=== PATIENT | female | born 1955 | race Caucasian/White ===

== ENCOUNTER 2016-09-29 04:58 | Emergency (ER) | payer BC ==
[~2016-09-29] VITALS: Ht 157.5 cm; Wt 52.2 kg
[2016-09-29] VITALS (7 sets, daily range): BP systolic 92–109; BP diastolic 50–67
[2016-09-29] MEDS ORDERED: ATIVAN0.5 MG ORAL (05:06)
[2016-09-29] MEDS ORDERED: PRISTIQ ER25 MG PO (05:06)
[2016-09-29] MEDS ORDERED: SYNTHROID88 MCG ORAL (05:06)
[2016-09-29] MEDS ORDERED: NUVIGIL250 MG PO (05:06)
[2016-09-29 06:34] LABS: MEAN CORPUSCULAR HEMOGLOBIN 30.3 PG (27.0-31.0); MEAN CORPUSCULAR HGB CONC 32.6 G/DL (32.0-36.0); MEAN CORPUSCULAR VOLUME 93 FL (80-99); MEAN PLATELET VOLUME 5.9 FL (6.5-10.1); PLATELET COUNT 339 K/UL (150-450); RED BLOOD COUNT 4.58 M/UL (4.20-5.40); RED CELL DISTRIBUTION WIDTH 12.9 % (11.6-14.8); WHITE BLOOD COUNT 19.7 K/UL (4.8-10.8)
--- NOTE | 2016-09-29 06:39 | Emergency Room Report ---
History of Present Illness General Chief Complaint: Syncope Source: Patient (JULIAN TERAN M.D.) Present Illness HPI 61-year-old female presents to ED status post syncopal episode. Per EMS patient was sitting on the toilet when she started to feel dizzy and passed out. She states she's had multiple episodes of diarrhea starting last night. Patient sustained a laceration to her chin. Upon arrival patient states she is feeling better. Patient states she has history of vasovagal syncope. Patient BP low in the field. Given IV fluids. Tetanus is up-to-date. Denies the pain. Denies any headache, blurry vision. Denies chest pain shortness of breath. No other aggravating relieving factors. (JULIAN TERAN M.D.) Allergies: Coded Allergies: No Known Allergies (Unverified , 09/29/16) Patient History Past Medical History: none Past Surgical History: none Pertinent Family History: none Social History: Denies: alcohol use, drug use, smoking Last Menstrual Period: none Now: No Immunizations: UTD Reviewed Nursing Documentation: PMH: Agreed, PSxH: Agreed (JULIAN TERAN M.D.) Review of Systems All Other Systems: negative except mentioned in HPI (JULIAN TERAN M.D.) Physical Exam Vital Signs Date Time Temp Pulse Resp B/P Pulse Ox O2 Delivery O2 Flow Rate FiO2 09/29/16 04:57 98.1 94 18 90/43 96 Room Air Sp02 EP Interpretation: reviewed, normal General Appearance: no apparent distress, alert, GCS 15, non-toxic Head: normocephalic, other - 2cm laceration to chin Eyes: bilateral eye PERRL, bilateral eye normal inspection ENT: hearing grossly normal, normal pharynx, no angioedema, normal voice Neck: full range of motion, supple/symm/no masses Respiratory: chest non-tender, lungs clear, normal breath sounds, speaking full sentences Cardiovascular #1: regular rate, rhythm, no edema Cardiovascular #2: 2+ carotid (R), 2+ carotid (L), 2+ radial (R), 2+ radial (L) , 2+ dorsalis pedis (R), 2+ dorsalis pedis (L) Gastrointestinal: normal bowel sounds, non tender, soft, non-distended, no guarding, no rebound Rectal: deferred Genitourinary: normal inspection, no CVA tenderness Musculoskeletal: back normal, gait/station normal, normal range of motion, non- tender Neurologic: alert, oriented x3, responsive, motor strength/tone normal, sensory intact, speech normal Psychiatric: judgement/insight normal, memory normal, mood/affect normal, no suicidal/homicidal ideation Reflexes: 3+ bicep (R), 3+ bicep (L), 3+ tricep (R), 3+ tricep (L), 3+ knee (R) , 3+ knee (L) Skin: normal color, no rash, warm/dry, well hydrated Lymphatic: no adenopathy (JULIAN TERAN M.D.) Medical Decision Making Diagnostic Impression: Primary Impression: Syncope Labs Test 09/29/16 06:25 White Blood Count 19.7 K/UL (4.8-10.8) Red Blood Count 4.58 M/UL (4.20-5.40) Hemoglobin 13.9 G/DL (12.0-16.0) Hematocrit 42.5 % (37.0-47.0) Mean Corpuscular Volume 93 FL (80-99) Mean Corpuscular Hemoglobin 30.3 PG (27.0-31.0) Mean Corpuscular Hemoglobin Concent 32.6 G/DL (32.0-36.0) Red Cell Distribution Width 12.9 % (11.6-14.8) Platelet Count 339 K/UL (150-450) Mean Platelet Volume 5.9 FL (6.5-10.1) Neutrophils (%) (Auto) % (45.0-75.0) Lymphocytes (%) (Auto) % (20.0-45.0) Monocytes (%) (Auto) % (1.0-10.0) Eosinophils (%) (Auto) % (0.0-3.0) Basophils (%) (Auto) % (0.0-2.0) Sodium Level 129 mEQ/L (135-145) Potassium Level 4.3 mEQ/L (3.4-4.9) Chloride Level 95 mEQ/L (98-107) Carbon Dioxide Level 24 mEQ/L (20-30) Anion Gap 10 (5-15) Blood Urea Nitrogen 23 mg/dL (7-23) Creatinine 1.0 mg/dL (0.5-0.9) Estimat Glomerular Filtration Rate 56.4 mL/min (>60) Glucose Level 112 mg/dL (74-106) Calcium Level 8.8 mg/dL (8.6-10.2) Total Bilirubin 0.3 mg/dL (0.0-1.2) Aspartate Amino Transf (AST/SGOT) 19 U/L (5-40) Alanine Aminotransferase (ALT/SGPT) 14 U/L (3-33) Alkaline Phosphatase 87 U/L (35-104) Total Creatine Kinase 50 U/L (26-140) Creatine Kinase MB 2.0 ng/mL (< 3.8) Creatine Kinase MB Relative Index 4.0 Troponin I < 0.30 ng/mL (<=0.30) Total Protein 6.4 g/dL (6.6-8.7) Albumin 3.8 g/dL (3.5-5.2) Globulin 2.6 g/dL Albumin/Globulin Ratio 1.4 (1.0-2.7) (JULIAN TERAN M.D.) ER Course Patient was endorsed to me by Dr. Teran. The patient was noted to have a syncopal episode after having watery diarrhea. The patient was given IV fluid she was given IV antibiotics. Patient was noted to have improvement in her symptoms. Patient was offered admission but declined. Orthostatic vital signs were unremarkable after IV hydration. 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 Patient is much return if she began feeling dizzy lightheaded or any other concerns. (Kam Acosta) EKG Diagnostic Results Rate: normal Rhythm: NSR ST Segments: no acute changes ASA given to the pt in ED: No (JULIAN TERAN M.D.) Rhythm Strip Diag. Results EP Interpretation: yes Rhythm: NSR, no PVC's, no ectopy (JULIAN TERAN M.D.) Chest X-Ray Diagnostic Results Chest X-Ray Diagnostic Results : Chest X-Ray Ordered: Yes # of Views/Limited/Complete: 1 View Indication: Other - syncope EP Interpretation: Yes Interpretation: no consolidation, no effusion, no pneumothorax, no acute cardiopulmonary disease Impression: No acute disease Interpreting ER Provider: electronically signed by Julian Teran MD (JULIAN TERAN M.D.) CT/MRI/US Diagnostic Results CT/MRI/US Diagnostic Results #1: Imaging Test Ordered: CT Head Impression no acute process CT/MRI/US Diagnostic Results #2: Imaging Test Ordered: CT Facial Bone Impression no acute process (JULIAN TERAN M.D.) Last Vital Signs Date Time Temp Pulse Resp B/P Pulse Ox O2 Delivery O2 Flow Rate FiO2 09/29/16 04:57 98.1 94 18 90/43 96 Room Air (JULIAN TERAN M.D.) Status: improved (Kam Acosta) Disposition: HOME, SELF-CARE Condition: Stable Scripts Cephalexin* (KEFLEX*) 500 Mg Capsule 500 MG ORAL Q6H, #28 CAP 0 Refills Prov: Kam Acosta 09/29/16 Referrals: NOT CHOSEN IPA/,REFERRING (PCP) JULIAN TERAN M.D. Sep 29, 2016 06:39 Kam Acosta Sep 29, 2016 09:46
[2016-09-29] MEDS ORDERED: Bacitracin Oint UD TOPIC ONE (06:45)
[2016-09-29 06:49] LABS: ALBUMIN/GLOBULIN RATIO 1.4 (1.0-2.7); CALCIUM 8.8 mg/dL (8.6-10.2); GLOMERULAR FILTRATION RATE 56.4 mL/min (>60); POTASSIUM 4.3 mEQ/L (3.4-4.9); TOTAL PROTEIN 6.4 g/dL (6.6-8.7)
[2016-09-29 06:50] LABS: TROPONIN I < 0.30 ng/mL (<=0.30)
[2016-09-29 08:06] LABS: BAND NEUTROPHILS % (MANUAL) 0 % (0-8); BASOPHILS % (MANUAL) 0 % (0-2); EOSINOPHILS % (MANUAL) 0 % (0-3); LYMPHOCYTES % (MANUAL) 6 % (20-45); NEUTROPHILS % (MANUAL) 83 % (45-75); PLATELET ESTIMATE ADEQUATE; PLATELET MORPHOLOGY NORMAL; TOTAL CELLS COUNTED 100
[2016-09-29 08:53] LABS: APPEARANCE,URINE SLIGHTLY CLOUDY; KETONES,URINE 2+ (NEGATIVE); LEUKOCYTE ESTERASE ,URINE 2+ (NEGATIVE); NITRITE,URINE POSITIVE (NEGATIVE); PH,URINE 6.5 (4.5-8.0); PROTEIN,URINE 3+ (NEGATIVE); UROBILINOGEN,URINE 8 MG/DL (0.0-1.0)
[2016-09-29 08:56] LABS: AMORPHOUS SEDIMENT,UR FEW /LPF; BACTERIA,URINE FEW /HPF; CALCIUM OXALATE CRYSTALS,UR FEW /LPF; ICTOTEST NEGATIVE; SQUAMOUS EPITHELIAL CELL,UR FEW /LPF (NONE/OCC)
[2016-09-29] MEDS ORDERED: KEFLEX500 MG ORAL (09:03)
[2016-09-29] MEDS ORDERED: cefTRIAXone 1 GM in NS 55 ML IVPB ONE (09:15)
--- NOTE | 2016-09-29 09:37 | Diagnostic Imaging Report ---
Indications: SYNCOPE Technique: Spiral images obtained through the facial bones. No IV contrast utilized. Multiplanar reconstructions were generated.Total dose length product body 5 mGycm. CTDIvol(s) 28mGy. Dose reduction achieved using automated exposure control Comparison: None Findings: No evidence of acute fracture. The sinuses are clear. The dentition is intact. Impression: Negative This agrees with the preliminary interpretation provided overnight by Dr. Murphy The CT scanner at [facility] is accredited by the [employer] and the scans are performed using protocols designed to limit radiation exposure to as low as reasonably achievable to attain images of sufficient resolution adequate for diagnostic evaluation.
--- NOTE | 2016-09-29 13:30 | Diagnostic Imaging Report ---
Indication: Chest pain Technique: One view of the chest Comparison: none Findings: Lungs and pleural spaces are clear. Heart size is normal. Impression: No acute process
== END 2016-09-29 09:59 | disposition home or self-care (01) ==
LOC: EDBD 04:58 → EMR 05:15
DX: R55 Syncope and collapse (principal); R19.7 Diarrhea, unspecified; S01.81XA Laceration without foreign body of other part of head, initial encounter; W19.XXXA Unspecified fall, initial encounter; Y93.9 Activity, unspecified; Y92.9 Unspecified place or not applicable
CPT/HCPCS: 36415; 70450; 70486; 71010; 80053; 81003; 82550; 82553; 84484; 85007; 85025; 93005; 96361; 96374; 96375; 99284; J0696

== ENCOUNTER 2016-10-04 05:53 | Emergency (ER) | payer BC ==
[~2016-10-04] VITALS: Ht 157.5 cm; Wt 52.2 kg
[~2016-10-04 05:53] MED LIST: ATIVAN0.5 MG ORAL; KEFLEX500 MG ORAL; NUVIGIL250 MG PO; PRISTIQ ER25 MG PO; SYNTHROID88 MCG ORAL
[2016-10-04 06:01] VITALS: BP 129/87
[2016-10-04 06:29] VITALS: BP 129/87
--- NOTE | 2016-10-05 14:58 | Emergency Room Report ---
History of Present Illness General Chief Complaint: Wound Recheck/Suture Removal Source: Patient Present Illness HPI 61-year-old female presents ED for suture removal. Patient is here last week for syncopal episode and sustained a chin laceration. Laceration was repaired and patient was treated and discharged. Patient is here to have the sutures removed. Denies any pain. States the wound is well-healed. Denies any discharge. No other aggravating relieving factors. Denies any other associated symptoms Allergies: Coded Allergies: No Known Allergies (Unverified , 09/29/16) Patient History Past Medical History: none Past Surgical History: none Pertinent Family History: none Social History: Denies: alcohol use, drug use, smoking Now: No Immunizations: UTD Reviewed Nursing Documentation: PMH: Agreed, PSxH: Agreed Nursing Documentation-PMH Past Medical History: No Stated History Review of Systems All Other Systems: negative except mentioned in HPI Physical Exam Vital Signs Date Time Temp Pulse Resp B/P Pulse Ox O2 Delivery O2 Flow Rate FiO2 10/04/16 05:57 98.1 80 18 129/87 100 Room Air Sp02 EP Interpretation: reviewed, normal General Appearance: no apparent distress, alert, GCS 15, non-toxic Head: normocephalic Eyes: bilateral eye PERRL, bilateral eye normal inspection ENT: normal ENT inspection Neck: normal inspection Respiratory: normal inspection Cardiovascular #1: normal inspection Gastrointestinal: normal inspection Rectal: deferred Genitourinary: no CVA tenderness Musculoskeletal: normal inspection Neurologic: alert, oriented x3, responsive, motor strength/tone normal, sensory intact, speech normal Psychiatric: judgement/insight normal, memory normal, mood/affect normal, no suicidal/homicidal ideation Skin: other - laceration well approximated with sutures. no induration/erythema Lymphatic: normal inspection Medical Decision Making Diagnostic Impression: Primary Impression: Encounter for removal of sutures ER Course Patient presents to the emergency department today for suture removal. patient' s wound appears well-healed, and sutures are ready to be removed today. Using sterile technique the sutures were removed patient tolerated procedure well without any difficulty. Patient was given device in how to care for the wound patient is advised followup with his private care doctor in 2-3 days and return to emergency room for any worsening conditions as needed Last Vital Signs Date Time Temp Pulse Resp B/P Pulse Ox O2 Delivery O2 Flow Rate FiO2 10/04/16 06:29 98.0 82 18 129/87 100 Room Air Status: improved Disposition: HOME, SELF-CARE Condition: Stable Referrals: NON PHYSICIAN (PCP) Patient Instructions: Suture Removal, Care After WILLEM CLANCY M.D. Oct 05, 2016 14:58
== END 2016-10-04 06:30 | disposition home or self-care (01) ==
LOC: EMR 06:12
DX: S01.81XD Laceration without foreign body of other part of head, subsequent encounter (principal); Z48.02 Encounter for removal of sutures
CPT/HCPCS: 99282

== ENCOUNTER 2017-10-15 20:49 | Emergency (ER) | payer BC ==
[~2017-10-15] VITALS: Ht 162.6 cm; Wt 65.8 kg
--- NOTE | 2017-10-15 20:59 | Emergency Room Report ---
History of Present Illness General Chief Complaint: Overdose Source: Medical Record, EMS Present Illness HPI Is a 62-year-old female with a psychiatric history. She was brought in by EMS with chief complaint of overdose. Her called 911 because she overdose on Klonopin and Ambien. Unknown amount. She said she is went to sleep. Per her she threatened suicide before doing it. Unable to get any other history from patient because of her sedated state. I spoke with her who showed up later. He said that they're living apartment because of some marital issue. Patient has been depressed. A friend called him to check up on her because there were unable to contact the patient. He found her after she admit to taking some pills. She had written a note that said that she is DO NOT RESUSCITATE and does not want any he woke effort. She doesn't want an autopsy and where to be buried. Police placed her on a 5150. Allergies: Coded Allergies: No Known Allergies (Unverified , 09/29/16) Patient History Past Medical History: see triage record, old chart reviewed, psych hx Past Surgical History: other Family History: none Social History: other Now: No Immunizations: other Reviewed Nursing Documentation: PMH: Agreed; PSxH: Agreed Nursing Documentation-PMH History Of Psychiatric Problem: Yes - anxiety, depression Review of Systems ENT: Denies: sore throat Cardiovascular: Denies: chest pain, palpitations Gastrointestinal/Abdominal: Denies: nausea, vomiting, diarrhea Musculoskeletal: Denies: back problems Skin: Denies: rash Neurological: Denies: KURTZ, seizures All Other Systems: negative except mentioned in HPI Physical Exam Vital Signs Date Time Temp Pulse Resp B/P (MAP) Pulse Ox O2 Delivery O2 Flow Rate FiO2 10/15/17 20:47 97.4 80 18 112/68 98 Room Air 97.3 vitals stable Sp02 EP Interpretation: reviewed, normal General Appearance: no apparent distress, non-toxic, other - Sleepy Head: normocephalic, atraumatic Eyes: PERRL, EOMI ENT: oropharynx normal Neck: supple/symm/no masses Respiratory: effort normal, no rhonchi, no wheezing Cardiovascular: no murmur, gallop, rub Gastrointestinal: non-tender, no mass, non-distended, no rebound/guarding, normal bowel sounds Musculoskeletal: normal ROM Neurologic: sensory intact, motor strength/tone normal, other - No focal deficit Skin: no rash, normal palpation Medical Decision Making Diagnostic Impression: Primary Impression: Benzodiazepine (tranquilizer) overdose Qualified Codes: T42.4X2A - Poisoning by benzodiazepines, intentional self- harm, initial encounter Additional Impressions: Suicidal overdose Qualified Codes: T50.902A - Poisoning by unspecified drugs, medicaments and biological substances, intentional self-harm, initial encounter Major depression Qualified Codes: F32.2 - Major depressive disorder, single episode, severe without psychotic features ER Course Patient with major depression and suicidal overdose. She is getting more more awake. Vital signs have been stable. She is medically cleared for psychiatric evaluation. Laboratory Tests Test 10/15/17 21:09 White Blood Count 12.2 K/UL (4.8-10.8) H Red Blood Count 4.40 M/UL (4.20-5.40) Hemoglobin 13.2 G/DL (12.0-16.0) Hematocrit 40.2 % (37.0-47.0) Mean Corpuscular Volume 91 FL (80-99) Mean Corpuscular Hemoglobin 30.0 PG (27.0-31.0) Mean Corpuscular Hemoglobin Concent 32.8 G/DL (32.0-36.0) Red Cell Distribution Width 11.5 % (11.6-14.8) L Platelet Count 291 K/UL (150-450) Mean Platelet Volume 5.9 FL (6.5-10.1) L Neutrophils (%) (Auto) 66.1 % (45.0-75.0) Lymphocytes (%) (Auto) 22.1 % (20.0-45.0) Monocytes (%) (Auto) 8.9 % (1.0-10.0) Eosinophils (%) (Auto) 2.1 % (0.0-3.0) Basophils (%) (Auto) 0.8 % (0.0-2.0) Urine Color Yellow Urine Appearance Clear Urine pH 6 (4.5-8.0) Urine Specific [place] 1.015 (1.005-1.035) Urine Protein 1+ (NEGATIVE) H Urine Glucose (UA) Negative (NEGATIVE) Urine Ketones Negative (NEGATIVE) Urine Occult Blood Negative (NEGATIVE) Urine Nitrite Negative (NEGATIVE) Urine Bilirubin Negative (NEGATIVE) Urine Urobilinogen Normal MG/DL (0.0-1.0) Urine Leukocyte Esterase 1+ (NEGATIVE) H Urine RBC 0-2 /HPF (0 - 2) Urine WBC 2-4 /HPF (0 - 2) Urine Squamous Epithelial Cells Few /LPF (NONE/OCC) Urine Bacteria Few /HPF (NONE) Sodium Level 141 MMOL/L (136-145) Potassium Level 3.6 MMOL/L (3.5-5.1) Chloride Level 104 MMOL/L (98-107) Carbon Dioxide Level 28 MMOL/L (21-32) Anion Gap 10 mmol/L (5-15) Blood Urea Nitrogen 16 mg/dL (7-18) Creatinine 1.4 MG/DL (0.55-1.30) H Estimat Glomerular Filtration Rate 38.1 mL/min (>60) Glucose Level 92 MG/DL (74-106) Calcium Level 9.5 MG/DL (8.5-10.1) Total Bilirubin 0.5 MG/DL (0.2-1.0) Aspartate Amino Transf (AST/SGOT) 20 U/L (15-37) Alanine Aminotransferase (ALT/SGPT) 28 U/L (12-78) Alkaline Phosphatase 70 U/L (46-116) Total Protein 6.9 G/DL (6.4-8.2) Albumin 4.1 G/DL (3.4-5.0) Globulin 2.8 g/dL Albumin/Globulin Ratio 1.5 (1.0-2.7) Salicylates Level 0.6 ug/mL (2.8-20) L Urine Opiates Screen Negative (NEGATIVE) Acetaminophen Level < 2 MCG/ML (10-30) L Urine Barbiturates Screen Negative (NEGATIVE) Phencyclidine (PCP) Screen Negative (NEGATIVE) Urine Amphetamines Screen Negative (NEGATIVE) Urine Benzodiazepines Screen Positive (NEGATIVE) H Urine Cocaine Screen Negative (NEGATIVE) Urine Marijuana (THC) Screen Negative (NEGATIVE) Serum Alcohol < 3 mg/dL Lab Results Impression labs unremarkable EKG Diagnostic Results Rate: normal Rhythm: NSR ST Segments: no acute changes Rhythm Strip Diag. Results Rhythm Strip Time: 20:59 EP Interpretation: yes Rate: 80 Rhythm: NSR, no PVC's, no ectopy Last Vital Signs Date Time Temp Pulse Resp B/P (MAP) Pulse Ox O2 Delivery O2 Flow Rate FiO2 7/30/18 20:47 97.4 80 18 112/68 98 Room Air 97.3 Status: improved Disposition: XFER TO PSYCH HOSP/UNIT Condition: Stable SUSAN CHAKRABORTY M.D. Oct 15, 2017 20:59
[2017-10-15 21:17] VITALS: BP 111/73
[2017-10-15 21:42] LABS: ANION GAP 10 mmol/L (5-15); BLOOD UREA NITROGEN 16 mg/dL (7-18); CALCIUM 9.5 MG/DL (8.5-10.1); CARBON DIOXIDE 28 MMOL/L (21-32); CHLORIDE 104 MMOL/L (98-107); CREATININE 1.4 MG/DL (0.55-1.30); POTASSIUM 3.6 MMOL/L (3.5-5.1); SODIUM 141 MMOL/L (136-145)
[2017-10-15 21:46] LABS: ALANINE AMINOTRANSFERASE 28 U/L (12-78); ALBUMIN 4.1 G/DL (3.4-5.0); ALBUMIN/GLOBULIN RATIO 1.5 (1.0-2.7); ALKALINE PHOSPHATASE 70 U/L (46-116); ASPARTATE AMINO TRANSFERASE 20 U/L (15-37); BILIRUBIN,TOTAL 0.5 MG/DL (0.2-1.0)
[2017-10-15 21:50] LABS: APPEARANCE,URINE CLEAR; BASOPHILS % (AUTO) 0.8 % (0.0-2.0); BILIRUBIN, URINE NEGATIVE (NEGATIVE); EOSINOPHILS % (AUTO) 2.1 % (0.0-3.0); GLUCOSE, URINE (UA) NEGATIVE (NEGATIVE); HEMATOCRIT 40.2 % (37.0-47.0); HEMOGLOBIN 13.2 G/DL (12.0-16.0); KETONES,URINE NEGATIVE (NEGATIVE); LEUKOCYTE ESTERASE ,URINE 1+ (NEGATIVE); LYMPHOCYTES % (AUTO) 22.1 % (20.0-45.0); MEAN CORPUSCULAR VOLUME 91 FL (80-99); MONOCYTES % (AUTO) 8.9 % (1.0-10.0); NEUTROPHILS % (AUTO) 66.1 % (45.0-75.0); NITRITE,URINE NEGATIVE (NEGATIVE); PH,URINE 6 (4.5-8.0); PLATELET COUNT 291 K/UL (150-450); PROTEIN,URINE 1+ (NEGATIVE); RED CELL DISTRIBUTION WIDTH 11.5 % (11.6-14.8); UROBILINOGEN,URINE NORMAL MG/DL (0.0-1.0); WHITE BLOOD COUNT 12.2 K/UL (4.8-10.8)
[2017-10-15 21:52] VITALS: BP 151/92
[2017-10-15 21:52] LABS: COLOR,URINE YELLOW
[2017-10-15] MEDS ORDERED: KLONOPIN1 MG ORAL (21:53)
[2017-10-15 22:29] VITALS: BP 120/75
[2017-10-16 00:23] VITALS: BP 156/80
[2017-10-16 02:04] VITALS: BP 168/93
[2017-10-16 03:50] VITALS: BP 154/90
[2017-10-16 05:45] VITALS: BP 155/94
[2017-10-16 07:54] VITALS: BP 155/94
--- NOTE | 2017-10-16 14:00 | Cardiology Report ---
APPROVED REPORT EKG Measurement Heart [id number] MA [id number] [id number] Normal sinus rhythm Left anterior fascicular block Prolonged QT Abnormal ECG
== END 2017-10-16 07:56 ==
LOC: EDBD 20:49 → EMR 21:55
DX: F32.2 Major depressive disorder, single episode, severe without psychotic features (principal); R45.851 Suicidal ideations; F41.9 Anxiety disorder, unspecified; T42.4X1A Poisoning by benzodiazepines, accidental (unintentional), initial encounter; Y92.038 Other place in apartment as the place of occurrence of the external cause
CPT/HCPCS: 36415; 80053; 80307; 81003; 85025; 93005; 96360; 99284; G0480; 80329